=== PATIENT | female | born 1990 | race Caucasian/White ===

== ENCOUNTER 2016-03-27 14:50 | Emergency (ER) | payer OTHER ==
[2016-03-27 14:59] VITALS: BP 112/69
[2016-03-27] MEDS ORDERED: NS 0.9% 1000 ML* 1,000 ML IV ONE ×2 (15:05→16:59)
[2016-03-27 15:25] LABS: Hematocrit 42 % (35-47); Hemoglobin 13.9 g/dl (12.0-16.0); Mean Corpuscular HGB Conc 33 g/dl (31-36); Mean Corpuscular Hemoglobin 30 pg (27-31); Mean Corpuscular Volume 92 fL (80-97); Mean Platelet Volume 10 um3 (7.4-10.4); Red Blood Count 4.56 10^6/ul (4.0-5.4); Red Cell Distribution Width 12 % (10.5-15)
--- NOTE | 2016-03-27 15:35 | RAD ---
INDICATION: Fever COMPARISON: None TECHNIQUE: An AP portable view obtained at 1530 hours is submitted. FINDINGS: Bones/Soft Tissues: There are no acute bony findings. Cardiomediastinal: The cardiomediastinal silhouette is normal. Lungs: There are no infiltrates. Pleura: There are no pleural effusions. Other: None IMPRESSION: NO ACTIVE DISEASE.
[2016-03-27 15:41] LABS: ALT 11 U/L (7-52); AST 16 U/L (13-39); Albumin 4.4 g/dL (3.2-5.2); Alkaline Phosphatase 40 U/L (34-104); Anion Gap 8 mmol/L (2-11); BUN/Creatinine Ratio 5.2 (8-20); Blood Urea Nitrogen 6 mg/dL (6-24); CO2 Carbon Dioxide 23 mmol/L (22-32); Calcium 9.2 mg/dL (8.6-10.3); Chloride 105 mmol/L (101-111); EGFR African American 72.6 (>60); EGFR Non-African American 56.5 (>60); Globulin 2.9 g/dL (2-4); Glucose 98 mg/dL (70-100); Potassium 3.6 mmol/L (3.5-5.0); Sodium 136 mmol/L (133-145); Total Protein 7.3 g/dL (6.4-8.9)
[2016-03-27] MEDS ORDERED: Oseltamivir CAP* 75 MG PO ONE (16:59)
[2016-03-27 17:47] LABS: Urine Bacteria 1+ (Absent); Urine Bilirubin Negative (Negative); Urine Glucose Negative (Negative); Urine Nitrite Negative (Negative)
--- NOTE | 2016-03-27 17:48 | ED ---
Yousuf Copeland Erika, scribed for Jn Herndaez MD on 03/27/16 at 1543 . HPI Febrile Illness - HPI Summary HPI Summary: Patient is a 26-year-old female presenting to the ED with a CC of fever. Pt reports that on 03/25/2015, she began to develop cold-like symptoms. She first developed "vocal-fold swelling" - pt states she could not sing - then headache, then fatigue, then myalgias of the lower body, then skin sensitive to the touch , the slight nasal discharge, post-nasal drip, and cough producing yellow sputum. Today, pt also developed a fever (max T 102.1) and chills. Pt denies burning with urination and urinary frequency. Hx asthma. FHx cardiac disease. Pt rarely drinks, and denies smoking or illicit drug use. - History of Current Complaint Chief Complaint: EDFever Time Seen by Provider: 03/27/16 15:21 Hx Obtained From: Patient Onset/Duration: Started Hours Ago - fever, Atraumatic, Still Present Timing: Constant Current Severity: Moderate Pain Intensity: 6 Pain Scale Used: 0-10 Numeric Aggravating Factors: Nothing Alleviating Factors: Nothing Associated Signs and Symptoms: Chills, Cough, Headache, Myalgia - Allergy/Home Medications Allergies/Adverse Reactions: Allergies Allergy/AdvReac Type Severity Reaction Status Date / Time Penicillins Allergy Rash Verified 03/27/16 14:52 PMH/Surg Hx/FS Hx/Imm Hx Endocrine/Hematology History: Denies: Hx Diabetes Respiratory History: Reports: Hx Asthma Infectious Disease History: Yes Infectious Disease History: Reports: Traveled Outside the [place] in Last 30 Days - Family History Known Family History: Positive: Cardiac Disease - Social History Alcohol Use: Rare Substance Use Type: Reports: None Hx Tobacco Use: No Smoking Status (MU): Never Smoked Tobacco Review of Systems Positive: Fever, Chills, Fatigue ENT: Other - "vocal-fold swelling," post-nasal drip Positive: Nasal Discharge Positive: Cough Negative: burning Positive: Myalgia Skin: Other - sensitive to the touch Positive: Headache All Other Systems Reviewed And Are Negative: Yes Physical Exam - Summary Physical Exam Summary: Vital signs: Reviewed Gen.: Patient is a well-developed and nourished male in no acute distress. Patient is lying comfortably on the stretcher. Head: Normacephalic and atraumatic Eyes: PERRLA, EOMI x2. Ears: Right and Left ear canal and TM WNL Nose and mouth: Positive runny nose with clear discharge. No pharyngeal erythema. Neck: Supple, no lymphadenopathy, no JVD Lungs: CTA B/L CVS: S1 & S2 present. No murmurs appreciated. Abdomen: Soft, NT, Positive BS. Extremities: FROM x4, no edema, no cyanosis, positive pulses Neuro: Alert and oriented x 3. No acute neurological deficits. Skin: Warm and dry Triage Information Reviewed: Yes Vital Signs On Initial Exam: Initial Vitals Temp Pulse Resp BP Pulse Ox 100.4 F 117 16 112/69 100 03/27/16 14:52 03/27/16 14:52 03/27/16 14:52 03/27/16 14:52 03/27/16 14:52 Vital Signs Reviewed: Yes - [place] Coma Scale Coma Scale Total: 15 Diagnostics - Vital Signs Vital Signs Temp Pulse Resp BP Pulse Ox 03/27/16 14:52 100.4 F 117 16 112/69 100 - Laboratory Lab Results: Lab Results 03/27/16 Range/Units 15:15 WBC 4.0 (3.5-10.8) 10^3/ul RBC 4.56 (4.0-5.4) 10^6/ul Hgb 13.9 (12.0-16.0) g/dl Hct 42 (35-47) % MCV 92 (80-97) fL MCH 30 (27-31) pg MCHC 33 (31-36) g/dl RDW 12 (10.5-15) % Plt Count 156 (150-450) 10^3/ul MPV 10 (7.4-10.4) um3 Neut % (Auto) 69.0 (38-83) % Lymph % (Auto) 15.8 L (25-47) % [place] % (Auto) 14.2 H (1-9) % Eos % (Auto) 0.3 (0-6) % Baso % (Auto) 0.7 (0-2) % Absolute Neuts (auto) 2.8 (1.5-7.7) 10^3/ul Absolute Lymphs (auto) 0.6 L (1.0-4.8) 10^3/ul Absolute Monos (auto) 0.6 (0-0.8) 10^3/ul Absolute Eos (auto) 0 (0-0.6) 10^3/ul Absolute Basos (auto) 0 (0-0.2) 10^3/ul Absolute Nucleated RBC 0 10^3/ul Nucleated RBC % 0 Result Diagrams: 03/27/16 15:15 03/27/16 15:15 Lab Statement: Any lab studies that have been ordered have been reviewed, and results considered in the medical decision making process. - Radiology CXR Radiology Interpretation Completed By: Radiologist - IMPRESSION: NO ACTIVE DISEASE. Course/Dx - Course Assessment/Plan: Patient is a 26-year-old female presenting to the ED with a CC of fever. Pt reports that on 03/25/2015, she began to develop cold-like symptoms. She first developed "vocal-fold swelling" - pt states she could not sing - then headache, then fatigue, and myalgias of the lower body, then skin sensitive to the touch, the slight nasal discharge, post-nasal drip, and cough producing yellow sputum. Today, pt also developed a fever (max T 102.1) and chills. Pt denies burning with urination and urinary frequency. Hx asthma. FHx cardiac disease. Pt rarely drinks, and denies smoking or illicit drug use. Blood work wnl except for creatinine of 1.16. Influenza A is positive. She was given IV fluids, Tylenol for fever and Tamiflu for her influenza. I discussed all my findings and test results with the patient. Patient understands and agrees. Patient was instructed to return to the emergency room immediately if any of the symptoms return or worsens. Patient understands and agrees. Plan of care was discussed with the patient and patient understands and agrees with the plan of care. All questions were answered at patient satisfaction. There were no further complaints or concerns. Patient was instructed to follow up with primary care physician within 3 to 5 days. Patient is hemodynamically stable. Patient is alert and oriented x 3. No acute neurological deficits. - Febrile Illness Differential Diagnoses: Fever of Unknown Origin, Pneumonia, Viremia - Diagnoses Provider Diagnoses: Acute laryngitis with influenza Discharge - Discharge Plan Condition: Stable Disposition: HOME Prescriptions: Oseltamivir CAP* [Tamiflu CAP*] 75 mg PO BID #19 cap Patient Education Materials: Influenza (ED) Referrals: [facility] [Outside] The documentation as recorded by the Yousuf acosta Erika accurately reflects the service I personally performed and the decisions made by me, Jn Hernadez MD.
== END 2016-03-27 18:25 | disposition home or self-care (01) ==
LOC: ED 14:50
DX: J11.1 Influenza due to unidentified influenza virus with other respiratory manifestations (principal); Z88.0 Allergy status to penicillin; J45.909 Unspecified asthma, uncomplicated
CPT/HCPCS: 36415; 71010; 80053; 81003; 81015; 83605; 84702; 85025; 85610; 85730; 87040; 87086; 87502; 99282; A9270-GY